=== PATIENT | male | born 1955 | race Two or more races ===

== ENCOUNTER 2019-05-24 10:31 | Inpatient (IN) | payer MEDICARE ==
[~2019-05-24] VITALS: Ht 162.6 cm; Wt 60.1 kg
[2019-05-24 10:50] LABS: BASOPHILS ABSOLUTE AUTO 0.06 K/mm3 (0.00-0.23); BASOPHILS PERCENT AUTO 1 % (0-2); EOSINOPHILS ABSOLUTE AUTO 0.37 K/mm3 (0.00-0.68); EOSINOPHILS PERCENT AUTO 4 % (0-6); Hemoglobin 12.4 g/dL (13.5-17.5); IMMATURE GRAN ABSOLUTE AUTO 0.03 K/mm3 (0.00-0.10); IMMATURE GRAN PERCENT AUTO 0 % (0-1); LYMPHOCYTES ABSOLUTE AUTO 1.46 K/mm3 (0.84-5.20); LYMPHOCYTES PERCENT AUTO 14 % (21-46); MONOCYTES ABSOLUTE AUTO 0.68 K/mm3 (0.16-1.47); MONOCYTES PERCENT AUTO 7 % (4-13); Mean Corpuscular HGB 31.7 pg (26.0-34.0); Mean Corpuscular HGB Conc 32.6 g/dL (31.5-36.5); Mean Corpuscular Volume 97 fL (80-100); Mean Platelet Volume 10.5 fL (9.1-12.4); NEUTROPHILS ABSOLUTE AUTO 7.56 K/mm3 (1.96-9.15); NEUTROPHILS PERCENT AUTO 74 % (41-73); Platelet Count 304 K/mm3 (150-400); RDW Coefficient Variation 14.7 % (11.7-14.2); RDW Standard Deviation 53.1 fL (35.1-46.3); Red Blood Cell Count 3.91 M/mm3 (4.30-5.90); White Blood Cell Count 10.16 K/mm3 (4.00-11.30)
[2019-05-24 11:19] LABS: Alanine Aminotransfer (ALT/SGP 19 U/L (12-78); Albumin, Blood 3.8 g/dL (3.4-5.0); Albumin/Globulin Ratio 0.9 (0.8-1.8); Alk Phos 113 U/L (50-136); Anion Gap 6 mmol/L (6-16); Aspartate Aminotrans (AST/SGOT 19 U/L (12-37); Bilirubin, Total 0.4 mg/dL (0.1-1.0); Blood Urea Nitrogen 19 mg/dL (8-24); Bun/Creatinine Ratio 22.7 (12.0-20.0); CO2, Blood 31 mmol/L (21-32); Calcium, Blood 9.2 mg/dL (8.5-10.1); Chloride, Blood 104 mmol/L (98-108); Creatinine, Blood 0.84 mg/dL (0.60-1.20); Globulin, Blood 4.2 g/dL (2.2-4.0); Glomerular Filtration Rate >60 (60-); Glucose, Blood 157 mg/dL (70-99); Potassium, Blood 3.8 mmol/L (3.5-5.5); Sodium, Blood 141 mmol/L (136-145)
[2019-05-24] MEDS ORDERED: Ventolin/Prove6.7 GM INH (13:27)
[2019-05-24] MEDS ORDERED: Zoloft100 MG PO (13:28)
[2019-05-24] MEDS ORDERED: ROPINIROLE HCL8 MG PO (13:28)
[2019-05-24] MEDS ORDERED: Simvastatin20 MG PO (13:28)
[2019-05-24] MEDS ORDERED: QUETIAPINE FUM400 MG PO (13:28)
[2019-05-24] MEDS ORDERED: ANORO ELLIPTA1 EACH INH (13:28)
[2019-05-24] MEDS ORDERED: TAMS.4ER PO (13:28)
[2019-05-24] MEDS ORDERED: Naproxen375 MG PO (13:29)
[2019-05-24] MEDS ORDERED: D3-20002000 UNIT PO (13:29)
[2019-05-24] MEDS ORDERED: ACET325 PO (15:23)
--- NOTE | 2019-05-24 20:05 | NUR ---
1999 63 Y/O MALE ADMITTED TO ROOM 359 PER CART FROM ER.
[2019-05-24 22:06] LABS: Source, Urine Clean Catch
[2019-05-24 22:08] LABS: Bilirubin, Urine Neg (Neg); Blood, Urine Neg (Neg); Glucose Qualitative, Urine Neg (Neg); Ketones, Urine Neg (Neg); Leukocyte Esterase, Urine Neg (Neg); Nitrite, Urine Neg (Neg); Protein, Urine Neg (Neg); Urobilinogen, Urine NORM (Normal)
[2019-05-24 22:10] LABS: Appearance, Urine Clear (Clear); Color, Urine Yellow (P-Yellow)
[2019-05-24 22:25] LABS: U Amphetamine Screen DETECTED; U Barbituate Screen Not Detected; U Benzodiazapine Screen Not Detected; U Buprenorphine Screen Not Detected; U Cannabinoids Screen DETECTED; U Cocaine Screen Not Detected; U Methadone Screen Not Detected; U Methamphetamine Screen DETECTED; U Opiates Screen Not Detected; U Oxycodone Screen Not Detected; U Phencyclidine Screen Not Detected; U Propoxyphene Screen Not Detected
--- NOTE | 2019-05-25 04:50 | NUR ---
SHIFT SUMMARY: 63 Y/O MALE RESTED COMFORTABLY IN BED ALL SHIFT, C/O ABDOMINAL PAIN 02/05 WITH FENTANYL 50MCG GIVEN WITH RELIEF FELT, PT RELUCTANT TO TAKE PAIN MEDS AT TIMES WITH THIS NURSE ENCOURAGING THERE USAGE, BED LOW POSITION, CALL LIGHT AT SIDE.
[2019-05-25 05:34] LABS: BASOPHILS ABSOLUTE AUTO 0.05 K/mm3 (0.00-0.23); BASOPHILS PERCENT AUTO 1 % (0-2); EOSINOPHILS ABSOLUTE AUTO 0.37 K/mm3 (0.00-0.68); EOSINOPHILS PERCENT AUTO 4 % (0-6); Hematocrit 36.9 % (37.0-53.0); Hemoglobin 11.8 g/dL (13.5-17.5); IMMATURE GRAN ABSOLUTE AUTO 0.03 K/mm3 (0.00-0.10); IMMATURE GRAN PERCENT AUTO 0 % (0-1); LYMPHOCYTES ABSOLUTE AUTO 1.61 K/mm3 (0.84-5.20); LYMPHOCYTES PERCENT AUTO 16 % (21-46); MONOCYTES ABSOLUTE AUTO 0.68 K/mm3 (0.16-1.47); MONOCYTES PERCENT AUTO 7 % (4-13); Mean Corpuscular HGB 31.2 pg (26.0-34.0); Mean Corpuscular Volume 98 fL (80-100); Mean Platelet Volume 10.7 fL (9.1-12.4); NEUTROPHILS PERCENT AUTO 73 % (41-73); Platelet Count 285 K/mm3 (150-400); RDW Coefficient Variation 14.6 % (11.7-14.2); RDW Standard Deviation 52.8 fL (35.1-46.3); Red Blood Cell Count 3.78 M/mm3 (4.30-5.90); White Blood Cell Count 10.34 K/mm3 (4.00-11.30)
[2019-05-25 05:56] LABS: Alanine Aminotransfer (ALT/SGP 15 U/L (12-78); Albumin, Blood 3.1 g/dL (3.4-5.0); Albumin/Globulin Ratio 0.8 (0.8-1.8); Alk Phos 101 U/L (50-136); Anion Gap 5 mmol/L (6-16); Aspartate Aminotrans (AST/SGOT 18 U/L (12-37); Bilirubin, Total 0.4 mg/dL (0.1-1.0); Blood Urea Nitrogen 11 mg/dL (8-24); Bun/Creatinine Ratio 14.7 (12.0-20.0); CO2, Blood 27 mmol/L (21-32); Calcium, Blood 8.4 mg/dL (8.5-10.1); Chloride, Blood 107 mmol/L (98-108); Creatinine, Blood 0.75 mg/dL (0.60-1.20); Glomerular Filtration Rate >60 (60-); Glucose, Blood 105 mg/dL (70-99); Magnesium, Blood 2.2 mg/dL (1.6-2.4); Phosphorus, Blood 2.1 mg/dL (2.5-4.9); Potassium, Blood 3.8 mmol/L (3.5-5.5); Sodium, Blood 139 mmol/L (136-145); Total Protein, Blood 7.1 g/dL (6.4-8.2)
[2019-05-25 05:59] LABS: International Normalized Ratio 1.02; Prothrombin Time Results 10.8 Sec (9.7-11.5)
--- NOTE | 2019-05-26 03:58 | NUR ---
SHIFT SUMMARY AOX4. LS CLEAR, DENIES SOB. BOWEL SOUNDS HYPO, PASSING GAS, SLIGHT NAUSEA DURING INITIAL ASSESSMENT. INCREASED AND ZOFRAN GIVEN @ 0320. PAIN RATED 6/10 IN ABDOMEN. 25MCG OF FENT GIVEN @ 0345. NS @ 75 IN R AC. SCDS ON. VSS. RA. UNSURE OF DC PLAN AT THIS TIME.
[2019-05-26 05:14] LABS: BASOPHILS ABSOLUTE AUTO 0.05 K/mm3 (0.00-0.23); BASOPHILS PERCENT AUTO 1 % (0-2); EOSINOPHILS ABSOLUTE AUTO 0.37 K/mm3 (0.00-0.68); EOSINOPHILS PERCENT AUTO 4 % (0-6); Hematocrit 37.9 % (37.0-53.0); Hemoglobin 12.1 g/dL (13.5-17.5); IMMATURE GRAN ABSOLUTE AUTO 0.03 K/mm3 (0.00-0.10); IMMATURE GRAN PERCENT AUTO 0 % (0-1); LYMPHOCYTES ABSOLUTE AUTO 1.82 K/mm3 (0.84-5.20); LYMPHOCYTES PERCENT AUTO 18 % (21-46); MONOCYTES ABSOLUTE AUTO 0.68 K/mm3 (0.16-1.47); MONOCYTES PERCENT AUTO 7 % (4-13); Mean Corpuscular HGB 30.9 pg (26.0-34.0); Mean Corpuscular HGB Conc 31.9 g/dL (31.5-36.5); Mean Corpuscular Volume 97 fL (80-100); Mean Platelet Volume 10.6 fL (9.1-12.4); NEUTROPHILS ABSOLUTE AUTO 7.17 K/mm3 (1.96-9.15); NEUTROPHILS PERCENT AUTO 71 % (41-73); Platelet Count 282 K/mm3 (150-400); RDW Coefficient Variation 14.3 % (11.7-14.2); RDW Standard Deviation 50.6 fL (35.1-46.3); Red Blood Cell Count 3.91 M/mm3 (4.30-5.90); White Blood Cell Count 10.12 K/mm3 (4.00-11.30)
[2019-05-26 05:52] LABS: Alanine Aminotransfer (ALT/SGP 18 U/L (12-78); Albumin/Globulin Ratio 0.7 (0.8-1.8); Alk Phos 104 U/L (50-136); Anion Gap 7 mmol/L (6-16); Aspartate Aminotrans (AST/SGOT 14 U/L (12-37); Bilirubin, Total 0.4 mg/dL (0.1-1.0); Blood Urea Nitrogen 10 mg/dL (8-24); CO2, Blood 27 mmol/L (21-32); Calcium, Blood 8.8 mg/dL (8.5-10.1); Chloride, Blood 105 mmol/L (98-108); Creatinine, Blood 0.77 mg/dL (0.60-1.20); Globulin, Blood 4.6 g/dL (2.2-4.0); Glomerular Filtration Rate >60 (60-); Glucose, Blood 100 mg/dL (70-99); Potassium, Blood 4.1 mmol/L (3.5-5.5); Sodium, Blood 139 mmol/L (136-145); Total Protein, Blood 7.6 g/dL (6.4-8.2)
--- NOTE | 2019-05-26 18:41 | NUR ---
SHIFT SUMMARY PT HAD A LARGE LIQUID STOOL THIS AFTERNOON AFTER EATING A COUPLE OF JELLO BOWLS. REPORTED PAIN IMPROVED TO ABDOMEN. HAD ALSO GIVEN HIM A KPAD FOR ABDOMENAL MUSCLE SORENESS DUE TO GUARDING FROM PANCREATITIS WHICHED HELPED. AT BEDSIDE THIS AFTERNOON. APPEARS BETTER THIS EVENING THAN THIS MORNING.
--- NOTE | 2019-05-27 03:15 | NUR ---
SHIFT SUMMARY AOX4. LS CLEAR, DENIES SOB. BS PRESENT, NO C/O NAUSEA. NO C/O PAIN. VSS ON . PT WILL HAVE REPEAT ABDOMEN CT ON TUESDAY. CURRENTLY NPO BUT ALLOWED SMALL AMOUNTS OF CLEAR LIQUIDS, TOLERATING WELL.
[2019-05-27 07:06] LABS: BASOPHILS ABSOLUTE AUTO 0.05 K/mm3 (0.00-0.23); BASOPHILS PERCENT AUTO 1 % (0-2); EOSINOPHILS ABSOLUTE AUTO 0.28 K/mm3 (0.00-0.68); EOSINOPHILS PERCENT AUTO 4 % (0-6); Hematocrit 36.7 % (37.0-53.0); Hemoglobin 11.9 g/dL (13.5-17.5); IMMATURE GRAN ABSOLUTE AUTO 0.03 K/mm3 (0.00-0.10); IMMATURE GRAN PERCENT AUTO 1 % (0-1); LYMPHOCYTES ABSOLUTE AUTO 1.21 K/mm3 (0.84-5.20); LYMPHOCYTES PERCENT AUTO 18 % (21-46); MONOCYTES ABSOLUTE AUTO 0.52 K/mm3 (0.16-1.47); MONOCYTES PERCENT AUTO 8 % (4-13); Mean Corpuscular HGB 31.8 pg (26.0-34.0); Mean Corpuscular HGB Conc 32.4 g/dL (31.5-36.5); Mean Corpuscular Volume 98 fL (80-100); NEUTROPHILS ABSOLUTE AUTO 4.52 K/mm3 (1.96-9.15); NEUTROPHILS PERCENT AUTO 68 % (41-73); RDW Coefficient Variation 13.9 % (11.7-14.2); RDW Standard Deviation 50.9 fL (35.1-46.3); Red Blood Cell Count 3.74 M/mm3 (4.30-5.90); White Blood Cell Count 6.61 K/mm3 (4.00-11.30)
[2019-05-27 07:27] LABS: Mean Platelet Volume 10.8 fL (9.1-12.4); Platelet Count 219 K/mm3 (150-400)
[2019-05-27 07:48] LABS: Alanine Aminotransfer (ALT/SGP 13 U/L (12-78); Albumin, Blood 2.7 g/dL (3.4-5.0); Albumin/Globulin Ratio 0.6 (0.8-1.8); Alk Phos 90 U/L (50-136); Anion Gap 4 mmol/L (6-16); Aspartate Aminotrans (AST/SGOT 20 U/L (12-37); Bilirubin, Total 0.4 mg/dL (0.1-1.0); Blood Urea Nitrogen 8 mg/dL (8-24); Bun/Creatinine Ratio 11.6 (12.0-20.0); CO2, Blood 27 mmol/L (21-32); Calcium, Blood 8.7 mg/dL (8.5-10.1); Chloride, Blood 108 mmol/L (98-108); Creatinine, Blood 0.69 mg/dL (0.60-1.20); Globulin, Blood 4.3 g/dL (2.2-4.0); Glomerular Filtration Rate >60 (60-); Glucose, Blood 103 mg/dL (70-99); Potassium, Blood 4.4 mmol/L (3.5-5.5); Sodium, Blood 139 mmol/L (136-145)
--- NOTE | 2019-05-27 18:19 | NUR ---
SHIFT SUMMARY PT NAPPING ON AND OFF THROUGH DAY. HAS DENIED PAIN OR NAUSEA TODAY AT ALL. STATES HE FEELS MUCH BETTER. TOLERATING FULL LIQUID DIET. AT BEDSIDE THIS AFTERNOON. SHOWER TAKEN THIS MORNING.
--- NOTE | 2019-05-28 06:43 | NUR ---
SUMMARY: A/OX4, INDEPENDENT AND SLEPT MOST OF NOCTE. PT DENIED ABDO PAIN, NAUSEA AND CONT'S TO TOLERATED FULL LIQUID DIET. NS INFUSES AT 75 ML/HR. HE SAYS LLQ IS TENDER AT TIMES BUT DENIED NEEDING PAIN MEDS. PT PASSING FLATUS BUT NO BM THIS SHIFT. VSS/AFEBRILE, NO ACUTE CHANGES. PT IS HOPING TO GO HOME TODAY AND IS A POSSIBLE D/C THIS AM. WCTM AND REPORT TO DAY RN.
--- NOTE | 2019-05-28 13:46 | NUR ---
Initial palliative care consult: Víctor is a 63 year old gentleman with a history of COPD, bipolar and alcohol use. He was admitted to [facility] on 05/24/19 with abdominal pain. He is currently being treated for pancreatitis. He reports that he had a repeat CT done this morning to evaluate a possible tumor in his pancreas. He reports that he quit smoking 9 years ago. He states that he needs to stop drinking alcohol. He reports that he has no plans to stop smoking marijuana. 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 He appears to be quite fidgety during my visit. He c/o some abdominal bloating after eating and rates his current pain a 4/10. He states earlier today he was a 7/10 so he is pleased that he is starting to feel a little better. He is anxious to learn the results of his CT scan this morning. He denies nausea. Reports one bout of liquid stool. No other complaints. He is independent at home with ADLs. He does not drive, he prefers to "ride." He lives with his . Their son lives in a trailor in their front yard. He states that he spent some time in "group home," but does not elaborate on that topic. Briefly discussed code status and AD. He confirms his choice at this time for a full code. He was willing to keep the AD booklet and will let staff know if he needs assistance in filling it out. Plan will be to continue to advance diet slowly per MD orders. He states that he may need additional tests or procedures once he talks with the doctor about his CT results. PC will remain avaialable to assist with advanced care planning, disease process education and symptom managment. Plan to follow up with pt and after the results of CT are given to them.
[2019-05-28] MEDS ORDERED: Docusate Sodiu1 EACH PO (17:30)
--- NOTE | 2019-05-28 18:26 | NUR ---
REVIEW D'C INSTRUCTIONS. AWARE NEEDS TO CALL PCP TOMORROW TO MAKE AN APPT. PCP IS IN [place]. NO NEW MEDS. REVIEW WHEN GOT MEDS AND WHAT MEDS TO CONTINUE. AWARE TO RETURN TO E.R. IF ANY PROBLEMS OR CONCERNS.ANSWER ALL QUESTIONS. IN W/C W/PERSONAL DRIVER AND S.O. TO POV.
== END 2019-05-28 18:31 | disposition home or self-care (01) | DRG 440 ==
LOC: ER 10:31 → ERHOLD 17:33 → MEDS 17:33
PROVIDERS: Emergency Medicine; Internal Medicine; Nurse Practitioner Acute Care; ADMIT Hospitalist
DX: K85.20 Alcohol induced acute pancreatitis without necrosis or infection (principal); J44.9 Chronic obstructive pulmonary disease, unspecified; F31.9 Bipolar disorder, unspecified; E78.5 Hyperlipidemia, unspecified; Z87.891 Personal history of nicotine dependence; F10.20 Alcohol dependence, uncomplicated; N40.0 Benign prostatic hyperplasia without lower urinary tract symptoms; K86.89 Other specified diseases of pancreas
CPT/HCPCS: 36415; 74160; 74177; 80053; 81003; 83605; 83690; 83735; 84100; 85025; 85610; 96361; 96365-59; 96366; 96375; 99285-25; J1885; J2405; J2550; J3010; J3411; J3475; J7030; J7042; Q9967